=== PATIENT | female | born 1995 | race Asian ===

== ENCOUNTER 2017-11-07 16:23 | Emergency (ER) | payer BC, SELFPAY ==
[2017-11-07 16:24] VITALS: BP 103/75; PULSE 75; RESP 16; TEMP 36.6; O2SAT 100; BMI 20.4
--- NOTE | 2017-11-07 16:44 | EKG12_ITS ---
Test Reason : MEDICAL CLEARANCE Blood Pressure : / mmHG Vent. Rate : 076 BPM Atrial Rate : 076 BPM P-R Int : 120 ms QRS Dur : 090 ms QT Int : 384 ms P-R-T Axes : 071 062 040 degrees QTc Int : 432 ms Normal sinus rhythm Normal ECG Confirmed by NANCIE MCCRACKEN ([id number]), society editor MERCY SHAH ([id number]) on 11/11/2017 10:15:11 AM Referred By: JOHNNY Confirmed By:NANCIE MCCRACKEN
[2017-11-07 17:10] LABS: Bacteria 0 SEEN /hpf (None Seen); Mucous, Urine 0 SEEN /hpf (<or=2+); White Blood Cells 0 SEEN /hpf (0-5)
[2017-11-07 17:18] LABS: Color, Urine Yellow (Yellow); Glucose, Dipstick Normal (Normal); Ketone-Dipstick Negative (Negative); Leukocyte Esterase-Dipstick Negative /ul (Negative); Nitrite-Dipstick Negative (Negative); Occult Blood-Urine 150 /ul (Negative); Protein-Dipstick Negative (Negative); Urine Bilirubin Dipstick Negative (Negative); Urine Clarity Clear (Clear); Urine Urobilinogen 1 mg/dl (Normal)
[2017-11-07 17:19] LABS: Absolute Lymphocyte Count 1.78 X10^3/ul (0.83-4.51); Absolute Neutrophil Count 1.2 X10^3/uL (2.0-7.7); Basophil# 0.04 X10^3/uL; Basophil% 1.1 % (0-1); Eosinophil# 0.04 X10^3/uL; Eosinophils% 1.1 % (0-5); Hematocrit 43.4 % (37-47); Lymphocyte # 1.78 X10^3/ul (4.0); Lymphocyte % 50.4 % (19-41); Mean Corp Hgb Conc 32.3 g/gl (32-36); Mean Corpuscular Hgb 26.1 pg (27.0-32.0); Mean Platelet Vol. 8.8 fl (6.2-12.0); Monocyte# 0.44 X10^3/uL; Monocyte% 12.5 % (0-10); Neutrophil # 1.22 X10^3/uL (2.7-7.7); Neutrophil % 34.6 % (47-70); POSITIVE COUNT NO; POSITIVE DIFFERENTIAL NO; Platelet Count 357 K/mm3 (150-450); RBC Distribution Width CV 13.1 % (11.6-14.6); RBC Distribution Width SD 38.4 fl (35.1-43.9); Red Blood Count 5.36 M/mm3 (4.2-5.4); White Blood Count 3.5 K/mm3 (4.4-11.0)
[2017-11-07 17:20] LABS: POSITIVE MORPHOLOGY NO
[2017-11-07 17:28] LABS: Squamous Epithelial Cells - UA 5-10 SEEN /hpf (5-10)
[2017-11-07 17:29] LABS: Red Blood Cells-Urine 0-5 SEEN /hpf (0-5)
[2017-11-07 17:31] LABS: Amphetamine Urine VISTA NEGATIVE (<1000 ng/mL); Barbiturate Urine VISTA NEGATIVE (< 200 ng/mL); Benzodiazepine Urine VISTA NEGATIVE (< 200 ng/mL); Cocaine Urine VISTA NEGATIVE (< 300 ng/mL); Ecstacy Urine VISTA NEGATIVE (< 500 ng/mL); Methadone Urine VISTA NEGATIVE (< 300 ng/mL); PCP Urine VISTA NEGATIVE (< 25 ng/mL); THC Urine VISTA NEGATIVE (< 50 ng/mL); Vista UDS pH Range 7
[2017-11-07 17:53] LABS: AST(SGOT) 17 U/L (15-37); Alanine Aminotransfer ALT/SGPT 18 U/L (13-56); Albumin, Serum 3.9 g/dL (3.2-5.0); Alkaline Phosphatase 60 U/L (45-117); Anion Gap 10 (5-15); BUN 9 mg/dL (7-18); BUN/Creat Ratio 12.5 RATIO (10-20); Calcium,Total 8.7 mg/dL (8.5-10.1); Chloride 106 mmol/L (98-107); Creatinine, Serum 0.72 mg/dL (0.55-1.02); EST Glomerular Filtration Rate 106 mL/min (>60); Est Glom Filt Rate - Afr Amer 128 mL/min (>60); Estimated Creatinine Clearance 106.66 ml/min; Globulin 4.1 g/dL (2.2-4.2); Glucose 84 mg/dL (74-106); Sodium Level 141 mmol/L (136-145); Thyroid Stim Hormone (TSH) 1.41 uIU/mL (0.358-3.74)
[2017-11-07 17:55] LABS: Pregnancy, Serum, hCG Quali. NEGATIVE Negative (0-9 Nonpreg)
--- NOTE | 2017-11-07 18:37 | ED.VISSUMM ---
- ER Visit Summary Date of Service: 11/07/17 Chief Complaint: Depression and suicidal ideation History of Present Illness: The patient is a 22 F who states that since the age of 10 she has had depression. She has been on Prozac for several years and states that 2-1/2 months ago she had the dosage increased to 40 mg once a day. 3 days ago she stopped this. She states that 3 days ago she began to have thoughts of harming herself. She states she has very vivid images of herself being dad and herself killing herself. She states that she cries at work. She lives with her parents. She has never tried self-harm before. Physical Examination: Afebrile vital signs are stable Gen: Well-nourished well-developed Head: Normocephalic atraumatic Eyes: Perrl EOMI ENT: TMs clear no rhinorrhea moist mucous membranes Neck: Supple no lymphadenopathy no JVD nontender CVS: Regular rate rhythm no murmurs normal S1-S2 Respiratory: No distress clear to auscultation bilaterally chest nontender Abdomen: Soft nontender nondistended normal bowel sounds no masses Back: Nontender Extremity: Nontender no edema Skin: Normal color no rash Neuro: alert orientated ?3 CN II-XII intact normal strength sensation reflexes gait cerebellar Psych: Depressed affect. Admits to suicidal ideation without plan. Test Results: CBC CMP TSH urine and tox screen negative Emergency Department Course and Treatment: Patient was cleared for crisis and psych evaluation. Crisis has come and evaluated the patient. Plan will be transferred to psychiatric facility. We are currently awaiting acceptance. Impression: 1. Depression 2. Suicidal ideation This note was generated with [employer] dictation software. It may contain incorrect words, spelling, and punctuation that were not noted in review of the chart prior to signing ED Disposition - Plan for ED Patient: Chief Complaint: Suicidal Referrals: Kodak Pavon DO [Primary Care Provider] -
[2017-11-07 19:35] VITALS: BP 107/78; PULSE 75; RESP 16; O2SAT 99
[2017-11-07 20:33] VITALS: RESP 17
[2017-11-07 21:03] VITALS: RESP 13
[2017-11-07 22:22] VITALS: BP 107/65; PULSE 89; RESP 24; O2SAT 97
[2017-11-07 23:06] VITALS: RESP 13
--- NOTE | 2017-11-07 23:06 | ED.RN ---
PT MOM CONTACT MARSHALL. NABIL- [phone] MOM WOULD LIKE CONTACTED IF PT GIVES PERMISSION, WHEN TRANSFERRED.
[2017-11-08 00:26] VITALS: RESP 12
[2017-11-08 00:44] VITALS: BP 109/71; PULSE 77; RESP 13; O2SAT 97
--- NOTE | 2017-11-08 00:57 | ED.RN ---
PT REPORTS TO THIS RN THAT SHE WILL CONTACT HER MOTHER RATHER THAN HAVING THIS RN CALL.
== END 2017-11-08 00:46 ==
PROVIDERS: Emergency Provider Emergency Medicine; Family Provider Family Medicine; PCP Family Medicine
DX: F32.9 Major depressive disorder, single episode, unspecified (principal); R45.851 Suicidal ideations; Z79.899 Other long term (current) drug therapy
CPT/HCPCS: 36415; 80053; 80307; 80320; 81001; 84443; 84703; 85025; 93005; 99284; G0480

== ENCOUNTER 2021-10-12 12:51 | Emergency (ER) | payer OTHER, SELFPAY ==
[2021-10-12 12:51] VITALS: BP 97/85; PULSE 77; RESP 16; TEMP 36.6; O2SAT 99; BMI 21.6
--- NOTE | 2021-10-12 13:20 | EKG12_ITS ---
Test Reason : SOB Blood Pressure : / mmHG Vent. Rate : 068 BPM Atrial Rate : 068 BPM P-R Int : 136 ms QRS Dur : 090 ms QT Int : 394 ms P-R-T Axes : 067 049 028 degrees QTc Int : 418 ms Normal sinus rhythm Low voltage QRS Borderline ECG Confirmed by SHAREE ARSHAD, JARED ([id number]), assistant editor SHILOH SINGLETARY ([id number]) on 10/13/2021 10:19:05 AM Referred By: SUNITHA Confirmed By:JARED TOLLIVER MD
--- NOTE | 2021-10-12 13:21 | ED.VIS.DYS ---
HPI History of Present Illness Chief Complaint: Shortness of Breath Narrative Narrative: 26-year-old female presenting with chest discomfort and shortness of breath. She states the bilateral upper chest feels heavy. She also complains of some sharp pains in the sternum at the lower margin she has had this for 2 days. Patient states he is day 4 of COVID symptoms. She was diagnosed at [facility]. Patient states he had fever, chills, body aches. Patient does admit to some shortness of breath. No history of DVT/PE but she does take oral control. Patient does not have any cardiac history. Currently today she is feeling improved. She has been able to eat and drink today although she states she has had decreased p.o. intake for the last couple of days. [facility] Medical History (Updated 10/12/21 @ 13:49 by Bernadette Doan RN) Anxiety Depression Home Medications fluoxetine 40 mg PO DAILY 05/26/17 [History Last Taken Unknown] norgestimate-ethinyl estradiol [Lmo-Pn-Bzjckd Tablet] 1 tab PO DAILY 11/07/17 [History Last Taken Unknown] oxcarbazepine 300 mg PO DAILY 10/12/21 [History Last Taken Unknown] topiramate 100 mg PO DAILY 10/12/21 [History Last Taken Unknown] Allergy/AdvReac Type Severity Reaction Status Date / Time No Known Allergies Allergy Verified 10/12/21 12:54 Social History Smoking Status: Never smoker [facility] ED Constitutional Constitutional ED: Reports chills and fever(s) Eyes Eyes: Denies blurry vision or diplopia ENT ENT ED: Denies rhinorrhea or sore throat Cardiovascular Cardiovascular: Reports chest pain Respiratory/Chest Respiratory/Chest: Reports cough and dyspnea Gastrointestinal Gastrointestinal: Denies abdominal pain, constipation, diarrhea, nausea or vomiting Genitourinary Genitourinary ED: Denies dysuria or hematuria Musculoskeletal Musculoskeletal: Reports myalgias; Denies arthralgias, back pain or neck pain Integumentary Denies rash Neurologic Neurologic: Denies headache(s) or weakness Psychiatric Psychiatric: Denies anxiety or depression EXAM Physical Exam Const Vital Signs: 10/12/21 12:51 10/12/21 13:48 10/12/21 13:49 Temperature 97.9 F Temperature Source Temporal Pulse Rate 77 Respiratory Rate 16 Respiratory Effort Normal Non-Labored Respiratory Depth Normal Respiratory Pattern Normal Blood Pressure 97/85 H Blood Pressure Mean 89 Pulse Ox 99 98 Oxygen Delivery Method Room Air Room Air Room Air Positive well nourished General Appearance ED: NAD; Negative for pallor HEENT Reports moist mucous membranes atraumatic Eyes PERRL and EOMs intact bilaterally Resp normal respiratory effort and clear to auscultation bilaterally Cardio regular rate and regular rhythm GI non-tender and non-distended Palpation: soft Neuro oriented x3, CN's II-XII intact bilaterally and no sensory deficits noted Motor Exam: strength 5/5 throughout Psych mental status grossly normal Thought Process: normal thought process Skin General Skin Exam: Negative for jaundice or pallor MDM MDM MDM Narrative Medical decision making narrative: 26-year-old female presenting with chest pain which has been present for 2 days. Her EKG on my interpretation is sinus rhythm with a ventricular to 68 bpm without sign of ischemic change. Chest x-ray on my interpretation shows no acute cardiopulmonary process and the radiologist does agree. CBC and BMP are unremarkable. High-sensitivity troponin 9. D-dimer less than 0.27. Given patient's ultimately negative work-up I believe she safe for discharge home. I do not believe she needs a delta troponin as she does not have any cardiac risk factors. Impression: 1. COVID-19 2. Chest pain noncardiac Lab Data Attestation: I reviewed the patient's lab results. Labs: Laboratory Results - last 24 hr 10/12/21 10/12/21 10/12/21 13:35 13:35 13:35 WBC 5.4 RBC 5.28 Hgb 13.9 Hct 43.2 MCV 81.8 MCH 26.3 L MCHC 32.2 RDW Std Deviation 39.8 RDW Coeff of Cathy 13.3 Plt Count 346 MPV 9.1 Immature Gran % (Auto) 0.200 Neut % (Auto) 59.7 Lymph % (Auto) 28.4 [place] % (Auto) 10.9 H Eos % (Auto) 0.4 Baso % (Auto) 0.4 Absolute Neuts (auto) 3.2 Absolute Lymphs (auto) 1.54 Nucleated RBC % 0 D-Dimer Quant (PE/DVT) < 0.27 L Sodium 140 Potassium 3.7 Chloride 109 H Carbon Dioxide 25.0 Anion Gap 6 BUN 7 Creatinine 0.72 Estim Creat Clear Calc 105.61 Est GFR (MDRD) Af Amer 124 Est GFR (MDRD) Non-Af 103 BUN/Creatinine Ratio 9.7 L Glucose 116 H Calcium 8.4 L Troponin I High Sens 9 Radiography Diagnostic Testing: Clinical Impression(s) from Imaging Studies Chest X-Ray 10/12/21 13:45 IMPRESSION: Nonacute portable x-ray examination of the chest. Electronically Signed: Sha De Souza MD (Brooks) at 13:54 EDT , Discharge Plan Triage Chief Complaint: Shortness of Breath ED Provider: Joshua Clark Dx/Rx/DC Orders Prescriptions: No Action fluoxetine 20 MG capsule 40 mg PO DAILY RF: 0 norgestimate-ethinyl estradiol [Sqy-Sm-Tukmyq] 1 EACH tablet 1 tab PO DAILY RF: 0 oxcarbazepine 300 mg tablet 300 mg PO DAILY RF: 0 topiramate 100 mg tablet 100 mg PO DAILY RF: 0 Primary Care Provider: Care Physician,No [facility] - As Needed Care Physician,No Primary [Primary Care Provider] - Disposition Disposition: Home, Self Care
[2021-10-12 13:43] LABS: Absolute Lymphocyte Count 1.54 X10^3/uL (0.83-4.51); Absolute Neutrophil Count 3.2 X10^3/uL (2.0-7.7); Basophil# 0.02 X10^3/uL; Basophil% 0.4 % (0-1); Eosinophil# 0.02 X10^3/uL; Eosinophils% 0.4 % (0-5); Hematocrit 43.2 % (37-47); Hemoglobin 13.9 g/dL (12.0-15.0); Lymphocyte # 1.54 X10^3/ul (0.83-4.51); Lymphocyte % 28.4 % (19-41); Mean Corp Hgb Conc 32.2 g/dL (32-36); Mean Corpuscular Hgb 26.3 pg (27.0-32.0); Mean Corpuscular Volume 81.8 fL (81-99); Mean Platelet Vol. 9.1 fl (6.2-12.0); Monocyte# 0.59 X10^3/uL; Monocyte% 10.9 % (0-10); NRBC Flagged by Analyzer 0 % (0-5); Neutrophil # 3.24 X10^3/uL (2.7-7.7); Neutrophil % 59.7 % (47-70); Platelet Count 346 K/mm3 (150-450); RBC Distribution Width CV 13.3 % (11.6-14.6); RBC Distribution Width SD 39.8 fl (35.1-43.9); Red Blood Count 5.28 M/mm3 (4.2-5.4); White Blood Count 5.4 K/mm3 (4.4-11.0)
--- NOTE | 2021-10-12 13:45 | RAD_ITS ---
STUDY: X-RAY CHEST REASON FOR EXAM: Female, 26 years old. chest pain TECHNIQUE: AP COMPARISON: None. FINDINGS: EKG leads project over the chest. The lungs are clear and expanded. There is no demonstrated pleural abnormality. Normal size heart. Normal mediastinum and florencio. Normal visualized pulmonary arteries. Normal visualized aortic arch and descending thoracic aorta. Normal visualized thoracic spine. Normal visualized ribs, clavicles, and shoulders. There is no demonstrated abnormality of the visualized soft tissue structures of the upper abdomen. RAD/Chest 1 View (Portable) IMPRESSION: Nonacute portable x-ray examination of the chest. Electronically Signed: Sha De Souza MD (Brooks) at 13:54 EDT ,
[2021-10-12 13:48] VITALS: O2SAT 98
[2021-10-12 13:49] VITALS: O2SAT 98
[2021-10-12 13:59] LABS: D-Dimer Quantitative (DVT/PE) < 0.27 FEU/ug/m (0.27-0.49)
[2021-10-12 14:08] LABS: Anion Gap 6 (5-15); BUN 7 mg/dL (7-18); BUN/Creat Ratio 9.7 RATIO (10-20); Calcium,Total 8.4 mg/dL (8.5-10.1); Chloride 109 mmol/L (98-107); Creatinine, Serum 0.72 mg/dL (0.55-1.02); EST Glomerular Filtration Rate 103 mL/min (>60); Est Glom Filt Rate - Afr Amer 124 mL/min (>60); Estimated Creatinine Clearance 105.61 ml/min; Glucose 116 mg/dL (74-106); Potassium 3.7 mmol/L (3.5-5.1); Sodium Level 140 mmol/L (136-145); Troponin-I HS (w/2H Reflex) 9 pg/mL (3.0-54.0)
[2021-10-12 14:58] VITALS: BP 122/68; PULSE 71; RESP 15; O2SAT 99
[2021-10-12 15:41] LABS: Reflex Troponin-HS? (from REC) Y
== END 2021-10-12 14:58 | disposition home or self-care (01) ==
PROVIDERS: Emergency Provider Student in an Organized Health Care Education/Training Program; Visit Provider Student in an Organized Health Care Education/Training Program
DX: U07.1 COVID-19 (principal); R07.89 Other chest pain; F32.A Depression, unspecified; Z79.899 Other long term (current) drug therapy
CPT/HCPCS: 71045; 80048; 84484; 85025; 85379; 93005; 99284

== ENCOUNTER 2024-05-07 17:35 | Inpatient (IN) | payer BC, SELFPAY ==
[2024-05-07] VITALS (41 sets, daily range): BP systolic 94–151; BP diastolic 47–86; PULSE 74–92; RESP 16–18; TEMP 36.7; O2SAT 77–99; BMI 32.9
--- NOTE | 2024-05-07 17:34 | PCM.HP.OB ---
HPI - General General Date of Service: 05/07/24 HPI Narrative LUCIANA DIAZ, is a 28 F who presents with contractions. Maternal Data Information LEXIS Calculator Estimated Delivery Date Method Current WG Current Estimate 05/12/24 Manual 39w 2d PFSH PFSH Medical History (Updated 05/07/24 @ 17:[address] Marianne Snow MD) Bipolar 1 disorder Depression Anxiety Home Medications ?Medication ?Instructions ?Recorded ?Last Taken ?Type lamotrigine 25 mg tablet (Lamictal) 50 mg PO DAILY 05/07/24 05/06/24 21:00 History 50 mg Allergy/AdvReac Type Severity Reaction Status Date / Time No Known Allergies Allergy Verified 05/07/24 15:36 Surgical History (Updated 05/07/24 @ 15:52 by Shantelle Yanez) History of surgery Social History Smoking Status: Never smoker History Elective abortions Hx Para 0 Spontaneous abortions Hx # Term Pregnancies Ectopic pregnancies Hx # Pregnancies Multiple births # of living children NST FHR Rate Baby A Baseline: 135 Variability:: Moderate Accelerations:: 15 x 15 Decelerations:: Variable Uterine Activity:: Q 2-4 minutes Vital Signs Vital Signs Vital Signs: 05/07/24 15:28 05/07/24 15:28 05/07/24 15:30 Pulse Rate 81 Blood Pressure 121/67 H BP Systolic 121 BP Diastolic 67 Pulse Ox 92 05/07/24 15:30 Pulse Rate 86 Blood Pressure BP Systolic BP Diastolic Pulse Ox Weight Weight: 198 lb Body Mass Index (BMI) 32.9 Physical Exam Const alert, oriented x3 and no apparent distress GI soft to palpation, non-tender and non-distended GI Narrative: cvx - 4/90/-1 Labs Labs Labs: Hct 43.2 % (37-47) Hgb 13.9 g/dL (12.0-15.0) Assessment & Plan (1) 39 weeks gestation of : COMMENT: @ 39&2 PLAN: Plan Admit to L&D Expectant management GBS negative Pain - epidural as desired EFW - less than 4500g and patient with adequate pelvis
[2024-05-07] MEDS: Lactated Ringers 1,000 ML 50 ML IV ×2 (18:13→23:31)
[2024-05-07 18:35] LABS: Hemoglobin 12.6 g/dL (12.0-15.0); Red Blood Count 4.75 M/mm3 (4.2-5.4); White Blood Count 9.7 K/mm3 (4.4-11.0)
[2024-05-07 18:36] LABS: Differential Indicated SCAN CRITERIA MET; Hematocrit 38.2 % (37-47); Mean Corpuscular Hgb 26.5 pg (27.0-32.0); Mean Corpuscular Volume 80.4 fL (81-99); Mean Platelet Vol. 11.1 fl (6.2-12.0); POSITIVE COUNT YES; POSITIVE DIFFERENTIAL NO; POSITIVE MORPHOLOGY NO; Platelet Count 213 K/mm3 (150-450); RBC Distribution Width CV 14.6 % (11.6-14.6); RBC Distribution Width SD 41.8 fl (35.1-43.9)
[2024-05-07 18:37] LABS: Absolute Lymphocyte Count 2.61 X10^3/uL (0.83-4.51); Absolute Neutrophil Count 6.2 X10^3/uL (2.0-7.7); Basophil% 0.4 % (0-1); Eosinophils% 0.7 % (0-5); Lymphocyte # 2.61 X10^3/ul (0.83-4.51); Lymphocyte % 26.9 % (19-41); Monocyte# 0.69 X10^3/uL; Monocyte% 7.1 % (0-10); Neutrophil # 6.17 X10^3/uL (2.7-7.7); Neutrophil % 63.5 % (47-70)
[2024-05-07 18:38] LABS: Basophil# 0.04 X10^3/uL; Eosinophil# 0.07 X10^3/uL
[2024-05-07 18:53] LABS: Anisocytosis RARE; Platelet Estimate ADEQUATE (ADEQ); Red Cell Morphology N CHROM NORMAL (NORM C&C)
[2024-05-07 18:54] LABS: Microcytosis RARE
[2024-05-07 18:59] LABS: Syphilis Antibodies Non-reactive
[2024-05-07] MEDS: fentaNYL-bupivacaine (epidural) 100 ML BAG EPIDURAL ×2 (19:44→23:49)
[2024-05-07] MEDS: Ondansetron 4 MG/2 ML Vial IV (23:23)
[2024-05-08] VITALS (23 sets, daily range): BP systolic 111–133; BP diastolic 55–74; PULSE 75–113; RESP 16–18; TEMP 36.4–37.1; O2SAT 96–100
[2024-05-08] MEDS: Oxytocin 15 Units/NS 250ml 15 UNITS/250 ML IV.SOLN 2 UNITS IV (00:01)
[2024-05-08] MEDS: Oxytocin 15 Units/NS 250ml 15 UNITS/250 ML IV.SOLN 334 UNITS IV (02:25)
[2024-05-08] MEDS: Oxytocin 15 Units/NS 250ml 15 UNITS/250 ML IV.SOLN 83 UNITS IV (02:55)
--- NOTE | 2024-05-08 02:55 | EX.PCM.OBVAG ---
Maternal Data Information LEXIS Calculator Estimated Delivery Date Method Current WG Current Estimate 05/12/24 Manual 39w 3d Vaginal Delivery Maternal Presentation Maternal Presentation: Active Labor Vaginal Delivery Information Procedure Performed: Spontaneous Vaginal Delivery Surgeon/Practitioner: Marianne Snow Date of Procedure: 05/08/24 Pre-Procedure Diagnosis: Labor Post-Procedure Diagnosis: Same Type of anesthesia: Epidural Estimated Blood Loss: 650ml Findings Description of procedure: Called to room when patient C/C/+2. She was prepped & draped. Patient pushed well to deliver the head. head was gently guided to allow delivery of anterior and posterior shoulders. No excess traction placed on the head. The body delivered. 3VC clamped and cut in delayed fashion. Placenta delivered with gentle traction and good uterine tone obtained. Presentation: MADELEINE Amniotic Membrane Rupture Type: Artificial Amniotic Fluid Description: Clear Placental Delivery Description: Expressed Placenta Disposition: [facility] Specimen collected: No Cord Vessel Description: 3 Vessels Cord Entanglement: None Infant A Gender: Female (Will) (1 minute): 7 (5 minute): 9 Delayed Cord Clamping: Yes Multimedia Coordinator metal numerical tool programmer: No Post Vaginal Deli Medications given after delivery: IV Pitocin Laceration: 2nd degree (perineal - repaired with 3-0 vicryl) Complication Complications: No
[2024-05-08] MEDS: Acetaminophen 500 MG Tablet PO (04:13)
--- NOTE | 2024-05-08 05:55 | NURSING ---
epidural removed blue tip intact, tolerated well
[2024-05-08] MEDS: 0.9% Saline Lock 10 ML Syringe IV (10:06)
[2024-05-08] MEDS: Ondansetron ODT 4 MG Tablet PO (10:18)
[2024-05-08 10:24] LABS: Hematocrit 32.2 % (37-47); Hemoglobin 10.5 g/dL (12.0-15.0); Mean Corp Hgb Conc 32.6 g/dL (32-36); Mean Corpuscular Hgb 26.1 pg (27.0-32.0); Mean Corpuscular Volume 80.1 fL (81-99); Mean Platelet Vol. 10.2 fl (6.2-12.0); Platelet Count 255 K/mm3 (150-450); RBC Distribution Width CV 14.6 % (11.6-14.6); Red Blood Count 4.02 M/mm3 (4.2-5.4)
[2024-05-08] MEDS: Ibuprofen 600 MG Tablet PO (16:30)
[2024-05-09] MEDS: Ibuprofen 600 MG Tablet PO ×2 (01:01→11:42)
[2024-05-09 04:10] VITALS: BP 103/63; PULSE 79; RESP 15; TEMP 36.5; O2SAT 98
--- NOTE | 2024-05-09 06:18 | PCM.PN.OB ---
Subjective Subjective Patient is doing well and offers no complaints. Desires discharge to home. Pain is well-controlled. She is ambulating and voiding without difficulty. She is tolerating a diet without nausea or vomiting. She denies chest pain, shortness of breath, lightness, dizziness, leg pain. Lochia is normal. She is breast-feeding and plans on following with . Objective Data Objective Data Vital Signs: Vital Signs Temp Pulse Resp BP Pulse Ox O2 Del Method 97.7 F L 79 15 103/63 98 Room Air 05/09/24 04:10 05/09/24 04:10 05/09/24 04:10 05/09/24 04:10 05/09/24 04:10 05/09/24 04:10 Oxygen Delivery Method Room Air Weight: 198 lb Body Mass Index (BMI) 32.9 Intake & Output: Intake and Output for Last 24 Hours 05/07/24 05/08/24 05/09/24 23:59 23:59 23:59 Intake Total 265 / 265 643.00 / 643.00 Output Total 1800 / 1800 Balance 265 / 265 -1157.00 / -1157.00 Lab / Micro Data 05/08/24 10:11 Labs: Laboratory Results - last 24 hr 05/08/24 10:11: WBC 14.0 H, RBC 4.02 L, Hgb 10.5 L, Hct 32.2 L, MCV 80.1 L, MCH 26.1 L, MCHC 32.6, RDW Std Deviation 42.0, RDW Coeff of Cathy 14.6, Plt Count 255, MPV 10.2 Physical Exam Const alert and no apparent distress General Appearance: comfortable HEENT normocephalic Resp normal respiratory effort GI soft to palpation, non-tender and non-distended GI Narrative: FF@U-1 Extremity no calf tenderness Assessment & Plan (1) Vaginal delivery: PLAN: Patient is day 1 from a vaginal delivery. Desires discharge. Discharge instructions reviewed and follow-up in the office reviewed.
--- NOTE | 2024-05-09 06:20 | DCINST_ITS ---
Discharge Instructions Diet Discharge Diet: No restrictions DC O2, CPAP, BIPAP needs Home O2 Discharge instructions: No Dressing / Incision Discharge Activity: May Drive and May Shower May resume sexual activity in: 6 weeks (nothing in the vagina and no soaking in water) Ice area for (Minutes): 15 Weight Bearing Status: Weight bearing as tolerated Lifting Restrictions: nothing heavier than baby Dressing / Incision Call your doctor if you observe: Fever of 101 or Higher, Coldness, Increased Pain, Numbness or Tingling, Inability to urinate, Inability to have a bowel movement, Using more than 1 pad per hour, Shortness of breath, Dizziness, Swelling in the ankles, Chest pain, Increased palpitations (irregular heartbeat), Calf discomfort and Uncontrolled pain Cleanse incision/area with: Soap & Water Follow Up Care Please Follow Up With: Marianne Snow MD When: 1-2 weeks for early visit 6 weeks for exam Test Results: Test results from this visit will be discussed in further detail at your follow- up appointment, if applicable. Discharge Plan Admission Admit Date/Time: 05/07/24 17:35 Primary Reason for Your Visit: Delivery Attending Provider: Marianne Snow Primary Care Provider: Zina Guzman Primary Instructions Patient Instructions: After a Vaginal Discharge Orders/Prescriptions Prescriptions: Continued lamotrigine [Lamictal] 25 mg tablet 50 mg PO DAILY Referrals / Follow Up: Care PhysicianZina Primary [Primary Care Provider] - Disposition Disposition (needs filled in before D/C Order can be placed): Home, Self Care
--- NOTE | 2024-05-09 06:45 | PCM.DC.SUM ---
Providers Date of Admission: 05/07/24 Primary Care Physician: No Primary Care Phys Reason For Visit: R/O LABOR Diagnosis Discharge Diagnosis (1) Vaginal delivery: Status: Acute Code(s): O80 - Encounter for full-term uncomplicated delivery Plan: Patient is day 1 from a vaginal delivery. Desires discharge. Discharge instructions reviewed and follow-up in the office reviewed. Medications at Discharge Home Medications lamotrigine 25 mg tablet (Lamictal) 50 mg PO DAILY 05/07/24 Hospital Course Operations None Procedures - (vaginal delivery) Summary of Care Provided Minutes Spent on Discharge: 10 Hospital Course: The patient presented to the hospital at term in labor. She had a vaginal delivery. See vaginal delivery report for details. She is discharged home in good condition on day 1. Weight / BMI Weight Weight: 198 lb Body Mass Index (BMI) 32.9 ABG / Lab / Microbiology Data 05/08/24 10:11 Laboratory: Laboratory Results - last 24 hr 05/08/24 10:11: WBC 14.0 H, RBC 4.02 L, Hgb 10.5 L, Hct 32.2 L, MCV 80.1 L, MCH 26.1 L, MCHC 32.6, RDW Std Deviation 42.0, RDW Coeff of Cathy 14.6, Plt Count 255, MPV 10.2 D/C Instructions Discharge Diet: No restrictions May resume sexual activity in: 6 weeks (nothing in the vagina and no soaking in water) Ice area for (Minutes): 15 Weight Bearing Status: Weight bearing as tolerated Call your doctor if you observe: Fever of 101 or Higher, Coldness, Increased Pain, Numbness or Tingling, Inability to urinate, Inability to have a bowel movement, Using more than 1 pad per hour, Shortness of breath, Dizziness, Swelling in the ankles, Chest pain, Increased palpitations (irregular heartbeat), Calf discomfort and Uncontrolled pain Cleanse incision/area with: Soap & Water DC O2, CPAP, BIPAP Needs Home O2 Discharge instructions: No Please Follow Up With: Marianne Snow MD When: 1-2 weeks for early visit 6 weeks for exam Meaningful Use Info Meaningful Use Meaningful Use Diagnoses (Choose all that apply): None applicable Ischemic Stroke Statin Dosing Therapy Reference: STATIN DOSE THERAPY REFERENCE: * Patients > 75 years receive moderate or high dose statin therapy. * Patients 75 years or YOUNGER should receive HIGH intensity statin dose unless contraindicated. You will be required to document reason for non-treatment if statin daily dose does not meet guidelines. HIGH DOSE STATIN THERAPY DAILY Atorvastatin > than or = to 40 mg Rosuvastatin > than or = to 20 mg Amlodipine + Atorvastatin > than or = to 2.5/40 mg Ezetimibe + Simvastatin 10/80 mg Simvastatin 80mg Discharge Plan Admission Admit Date/Time: 05/07/24 17:35 Primary Reason for Your Visit: Delivery Attending Provider: Marianne Snow Primary Care Provider: Care Physician,Zina Primary Instructions Patient Instructions: After a Vaginal Discharge Orders/Prescriptions Prescriptions: Continued lamotrigine [Lamictal] 25 mg tablet 50 mg PO DAILY Referrals / Follow Up: Care Physician,No Primary [Primary Care Provider] - Disposition Disposition (needs filled in before D/C Order can be placed): Home, Self Care
[2024-05-09 08:30] VITALS: BP 102/65; PULSE 76; RESP 16; TEMP 36.6
--- NOTE | 2024-05-11 14:39 | CASEMGMT ---
Social Work Assessment Labor and Delivery Unit Patient Address: Phone number: Date of Referral: Time of Referral:? Referred By: Date of Intervention: ?? Time of Intervention:? Reason for Referral:? History obtained from: medical records, MOB Household composition: Patient's parent/guardian status:? ? Medical History: ? Educational Status:? Financial Status: Infant Supplies: Childcare/Caregiver(s):? Transportation:?? Programs/Agencies Involved: ??? Children Services/Legal Issues:??? Behavioral Health Issues: ??Mental Health History:??? Substance Use History:?? Family History:? Drug Screens: Family/Social Stressors:? Support Systems: Depression/Shaken Baby/Safe Sleeping: ASSESSMENT:? Safe Plan of Care for infant related to substance use:? PLAN:?? No other services requested or indicated. MOB and baby to be discharged when medically ready. Parents were provided literature regarding: signs and symptoms of baby blues and mood and anxiety disorders, Help Me Grow, shaken baby prevention, ABCs of safe sleep and a list of county resources that are available for them should any needs present themselves. David Randolph, LICENSED CHEMICAL SPRAY TECHNICIAN, LACE INSPECTOR
--- NOTE | 2024-05-11 14:39 | CASEMGMT ---
Social Work Assessment Labor and Delivery Unit Patient Address: [address] [place] [address] Phone number: [phone] Date of Referral: 05/08/24 Time of Referral:? 625 Referred By: Dr. Snow Date of Intervention: ??05/08/24 Time of Intervention:? 1100 Reason for Referral:? history of bipolar Sw completed chart review and acknowledges social work consult due to maternal mental health history. Sw presented to bedside and introduced self to mother of baby (KRYSTYNA- Alison). Sw notes that father of baby (MARIELENA- Ck) is asleep on couch throughout duration of completion of assessment. History obtained from: medical records, MOB Household composition: KRYSTYNA states that she and MARIELENA currently reside with maternal grandparents. [place] baby to be included in residence when ready for discharge. MOB denies any issues or concerns with housing, reporting that it is safe and secure. Patient's parent/guardian status:KRYSTYNA states that she and MARIELENA have been together for 8 years after meeting each other in college. This is first baby for both parents. MOB denies any domestic violence or intimate partner violence. ? ? Medical History: ?KRYSTYNA is 28 year old female who is 1- para 0- now 1 following labor and delivery of . KRYSTYNA received routine care during with [facility]. KRYSTYNA presented to hospital with contractions. KRYSTYNA delivered baby via vaginal delivery at 39 weeks gestation on 05/08/24. Baby girl, Will Rodriguez, was born weighing 8lb 14oz with apgars of 7 and 9 at one and five minutes of life, respectfully. KRYSTYNA states that she is wanting to breast feed and working on doing so. Baby will be followed by Dr. Phoenix for pediatrics. Educational Status:? Both parents graduated high school, KRYSTYNA obtained her Master's degree and MARIELENA has some college. No concerns with reading, learning or comprehension. Financial Status: Both parents are employed outside of the home. 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 Supplies: MOB states that all necessary baby supplies have been obtained including: car seat, safe sleep space, clothes, diapers and wipes. Childcare/Caregiver(s):? When both parents have returned to work baby will be watched by both grandma's. Transportation:?? Both parents have their drivers license and reliable means of transportation, no barriers at this time. Programs/Agencies Involved: ???Parents are over income for community resources. Children Services/Legal Issues:???No history of children services involvement, no issues or concerns warranting referral to be made at this time Behavioral Health Issues: ??Mental Health History:?KRYSTYNA states that MARIELENA has been diagnosed with ADHD. MOB a history positive for anxiety, depression and Bipolar. MOB states that she is prescribed lamicatal by Dr. Lynn at [facility]. MOB states that she is not connected to any additional mental health services, but would be able to get connected to counseling if warranted. MOB denies any feelings of anxiety, depression or sadness at this time. ? Substance Use History:?MOB denies substance use prior to and during . ? Family History:???MOB denies family history for substance use or significant mental health diagnoses. ?? Drug Screens: No drug screens observed during chart review. Family/Social Stressors:? MOB denies any issues, concerns or stressors at this time. Support Systems: KRYSTYNA identifies her parents as her biggest supports at this time. Depression/Shaken Baby/Safe Sleeping: Sw educated MOB on signs and symptoms of baby blues and mood and anxiety disorders to be mindful of during this period. MOB states that she is familiar with what symptoms to be on the lookout for. MOB able to acknowledge that she has felt anxious and slightly emotional now that baby has been born. MOB states that if she were to struggle with her mental health she would talk to Dr. Lynn about her symptoms and what she is experiencing. Sw encouraged MOB to also talk to [facility] about mood and anxiety disorders. Sw explained that KRYSTYNA is at higher risk due to her mental health history, including psychosis due to her Bipolar diagnosis. MOB expressed understanding. Sw educated MOB on shaken baby prevention and ABCs of safe sleep. MOB expressed understanding. ASSESSMENT:? MOB and baby admitted following labor and delivery of . MOB with mental health history positive for anxiety, depression and bipolar disorder. MOB laying in bed holding baby while FOB asleep on couch throughout duration of completion of psychosocial assessment. Nursing staff also indicate that MARIELENA has not been supportive and has been sleeping majority of . MOB informed sw that she is really tired, but does not want to sleep because she doesn't feel comfortable sleeping without someone awake with baby. Sw passed this along to nursing staff. MOB is connected to mental health services and supports, prescribed psychotropic medication. MOB talkative and receptive to sw involvement, but apparent that she is tired. PLAN:?? No other services requested or indicated. MOB and baby to be discharged when medically ready. Parents were provided literature regarding: signs and symptoms of baby blues and mood and anxiety disorders, Help Me Grow, shaken baby prevention, ABCs of safe sleep and a list of critical access hospital resources that are available for them should any needs present themselves. David Randolph, [employer], [employer]
== END 2024-05-09 12:35 | disposition home or self-care (01) | DRG 807 ==
LOC: WPOUT 17:42 → WP 05-08 09:04
PROVIDERS: Obstetrics & Gynecology; Admitting Provider Obstetrics & Gynecology; Referring Provider Obstetrics & Gynecology; Visit Provider Obstetrics & Gynecology
DX: O99.344 Other mental disorders complicating childbirth (principal); Z37.0 Single live birth; F31.9 Bipolar disorder, unspecified; Z3A.39 39 weeks gestation of pregnancy; O70.1 Second degree perineal laceration during delivery
CPT/HCPCS: 59025; 59050; 85025; 85027; 86780; 86850; 86900; 86901; 99221; A4216; G0378; J2405